=== PATIENT | female | born 1940 | race Caucasian/White ===

== ENCOUNTER 2019-07-16 13:13 | Inpatient (IN) ==
[2019-07-16] MEDS ORDERED: SODIUM CHLORIDE 0.9% 1,000 ML IV STA (13:40)
[2019-07-16] MEDS ORDERED: VANCOMYCIN INJ 1,000 MG in SODIUM CHLORIDE 0.9% 250 ML IV STA (14:55)
[2019-07-16 15:13] LABS: Basophils % 0.1 % (0.0-0.8); Hematocrit 30.4 VOL% (35.7-47.0); Hemoglobin 9.2 GM/DL (12.0-16.0); Immature Granulocytes % 0.9 %; Immature Granulocytes Absolute 0.19 #; Lymphocytes # 0.9 10*3/uL (1.4-4.0); Lymphocytes % 4.3 % (21.3-54.2); Mean Corpuscular HGB Conc 30.3 GM/DL (32-36); Mean Corpuscular Volume 97.7 FL (87-102); Mean Platelet Volume 10.2 FL (9.6-12.0); Monocytes % 3.5 % (1.7-12.7); Neutrophils % 91.2 % (38.7-73.9); Platelet Count 323 T/CUMM (130-400); Red Blood Count 3.11 MC/CUMM (3.8-5.5); Red Cell Distribution Width 14.8 % (9.3-17.3); White Blood Count 21.3 T/CUMM (4-12)
[2019-07-16 15:27] LABS: Apearance,Urine Slightly Hazy (Clear); Bacteria,Urine Moderate /HPF (Few); Bilirubin,Urine Negative (Negative); Blood, Urine Small mg/dL (Negative); Glucose,Urine (UA) Negative (Negative); Hyaline Casts,Urine 1 /LPF (0-3); Ketones,Urine 5 mg/dL (Negative); Nitrite,Urine Negative (Negative); Protein,Urine Negative; Squamous Epithelial Cell,Urine Occasional /HPF (0-10); Urine Color Yellow (Yellow); Urine Specific Gravity 1.013 (1.001-1.035); Urine Urobilinogen < 2.0 EU/DL (0.2-1.0); WBC,Urine 14 /HPF (0-6)
[2019-07-16 15:28] LABS: PT Patient Result 10.8 SECS (9.6-12.2); Partial Thromboplastin Time 28.7 SECS (20.8-36.0)
[2019-07-16 15:37] LABS: Barbiturates Screen,Urine Negative (Negative); Benzodiazepines Screen,Urine Negative (Negative); Cannabinoid Screen,Urine Negative (Negative); Opiate Screen,Urine Negative (Negative); Phencyclidine Screen,Urine Negative (Negative)
[2019-07-16 15:38] LABS: Alanine Aminotransferase 11 U/L (13-56); Albumin 2.2 G/DL (3.4-5.0); Alkaline Phosphatase 64 U/L (45-117); Amylase 32 U/L (25-115); Aspartate Amino Transferase 18 U/L (0-37); Bilirubin,Total < 0.39 MG/DL (0.2-1.0); Blood Urea Nitrogen 61 MG/DL (7-18); CKMB % 2.8 %; Calcium 8.7 MG/DL (8.5-10.1); Free T4 (Free Thyroxine) 0.89 NG/DL (0.76-1.46); Glucose 243 MG/DL (74-106); Thyroid Stimulating Hormone 0.654 uIU/ml (0.358-3.74); Total Protein 6.4 G/DL (6.4-8.3)
[2019-07-16 15:39] LABS: Troponin I 0.545 NG/ML (0.00-0.045)
[2019-07-16 15:47] LABS: Hypochromasia Slight; Lymphocytes 5 % (20-55); Microcytosis Slight; Ovalocytes Slight; Platelet Estimate Normal; Segmented Neutrophils 92 % (50-85); Total Cells Counted 100
[2019-07-16] MEDS ORDERED: GLUCAGON 1 MG VIAL IM PRN (16:36)
[2019-07-16] MEDS ORDERED: DEXTROSE 50% 25 GM/50 ML VIAL IV PRN ×2 (16:36)
[2019-07-16] MEDS ORDERED: POLYETHYLENE GLYCOL POWDER 17 GM PACK PO PRN (16:41)
[2019-07-16] MEDS ORDERED: FLUTICASONE 50 MCG NASAL SPRAY 16 GM BOTTLE BOTH NARES PRN (16:41)
[2019-07-16] MEDS ORDERED: SODIUM POLYSTYRENE SULFATE 15 GM/60 ML BOTTLE PO STA (16:45)
[2019-07-16] MEDS ORDERED: ROPINIROLE 0.5 MG PO SCH (17:00)
[2019-07-16] MEDS ORDERED: MEMANTINE 10 MG TABLET PO SCH (17:00)
[2019-07-16] MEDS ORDERED: LEVOFLOXACIN INJ 500 MG in PREMIX 1 EACH IV SCH (17:00)
[2019-07-16] MEDS ORDERED: GABAPENTIN 100 MG CAPSULE PO SCH (17:00)
[2019-07-16] MEDS ORDERED: SODIUM POLYSTYRENE SULFATE 15 GM/60 ML BOTTLE RECTAL STA (17:18)
[2019-07-16] MEDS: MONTELUKAST 10 MG TABLET PO SCH (19:10)
[2019-07-16] MEDS: APIXABAN 5 MG TABLET PO SCH (19:10)
[2019-07-16] MEDS: ACETAMINOPHEN 325 MG TABLET PO SCH (19:10)
[2019-07-16] MEDS: SIMVASTATIN 20 MG TABLET PO SCH (19:10)
[2019-07-16] MEDS: FLUoxetine 20 MG CAPSULE PO SCH (19:10)
[2019-07-16] MEDS: SODIUM CHLORIDE 0.9% 1,000 ML IV SCH (19:11)
[2019-07-16] MEDS: DONEPEZIL 5 MG TABLET PO SCH (19:11)
[2019-07-16] MEDS ORDERED: VANCOMYCIN INJ 1,000 MG in SODIUM CHLORIDE 0.9% 250 ML IV PRN (20:24)
[2019-07-16] MEDS: INSULIN REGULAR 100 UNIT/ML SUBCUT SCH (22:42)
[2019-07-17] MEDS: ACETAMINOPHEN 325 MG TABLET PO PRN (03:02)
[2019-07-17 05:04] LABS: Basophils % 0.2 % (0.0-0.8); Eosinophils % 0.2 % (0.00-10.9); Hematocrit 28.7 VOL% (35.7-47.0); Hemoglobin 8.6 GM/DL (12.0-16.0); Immature Granulocytes % 0.7 %; Immature Granulocytes Absolute 0.09 #; Lymphocytes # 1.6 10*3/uL (1.4-4.0); Lymphocytes % 12.5 % (21.3-54.2); Mean Platelet Volume 10.4 FL (9.6-12.0); Monocytes % 9.1 % (1.7-12.7); Neutrophils % 77.3 % (38.7-73.9); Platelet Count 268 T/CUMM (130-400); White Blood Count 12.6 T/CUMM (4-12)
[2019-07-17 05:41] LABS: Alanine Aminotransferase 9 U/L (13-56); Albumin 1.9 G/DL (3.4-5.0); Alkaline Phosphatase 56 U/L (45-117); Aspartate Amino Transferase 19 U/L (0-37); Bilirubin,Total < 0.39 MG/DL (0.2-1.0); Blood Urea Nitrogen 55 MG/DL (7-18); Calcium 8.1 MG/DL (8.5-10.1); HDL Cholesterol 36 MG/DL (40-60); Osmolality,Calculated 303.4 MOS/KG (273-304); Risk Ratio 2.97; Thyroid Stimulating Hormone 0.642 uIU/ml (0.358-3.74); Total Protein 5.5 G/DL (6.4-8.3); Triglycerides 94 MG/DL (2-150); VLDL CHOLESTEROL 18.8 MG/DL
[2019-07-17 05:54] LABS: Glucose 39 MG/DL (74-106)
[2019-07-17] MEDS ORDERED: DEXTROSE 10% 250 ML BAG IV PRN (05:58)
[2019-07-17] MEDS: CYANOCOBALAMIN 500 MCG TABLET PO SCH (06:22)
[2019-07-17] MEDS: LORATADINE 10 MG TABLET PO SCH (06:23)
[2019-07-17] MEDS: ACETAMINOPHEN 325 MG TABLET PO SCH ×2 (06:23→18:50)
[2019-07-17] MEDS: MULTIVITAMIN (CENTRUM) TABLET PO SCH (06:23)
[2019-07-17] MEDS: FLUoxetine 20 MG CAPSULE PO SCH ×2 (06:23→16:54)
[2019-07-17] MEDS: APIXABAN 5 MG TABLET PO SCH ×2 (06:23→16:55)
[2019-07-17] MEDS: SODIUM CHLORIDE 0.9% 1,000 ML IV SCH ×2 (06:27→16:30)
[2019-07-17] MEDS ORDERED: DOCUSATE SODIUM 100 MG CAPSULE PO SCH (07:00)
[2019-07-17] MEDS ORDERED: PANTOPRAZOLE 40 MG TABLET PO SCH (07:00)
[2019-07-17] MEDS: INSULIN REGULAR 100 UNIT/ML SUBCUT SCH ×3 (07:27→16:44)
[2019-07-17] MEDS: MEMANTINE 10 MG TABLET PO SCH (08:10)
[2019-07-17] MEDS: ASPIRIN EC 81 MG TABLET PO SCH (08:10)
[2019-07-17] MEDS: DONEPEZIL 5 MG TABLET PO SCH (16:54)
[2019-07-17] MEDS: MONTELUKAST 10 MG TABLET PO SCH (16:54)
[2019-07-17] MEDS: SIMVASTATIN 20 MG TABLET PO SCH (16:55)
[2019-07-17] MEDS: LEVOFLOXACIN INJ 250 MG in PREMIX 1 EACH IV SCH (18:50)
[2019-07-18] MEDS: INSULIN REGULAR 100 UNIT/ML SUBCUT SCH ×6 (00:45→21:07)
[2019-07-18] MEDS: SODIUM CHLORIDE 0.9% 1,000 ML IV SCH ×3 (01:55→23:16)
[2019-07-18 02:52] LABS: Basophils % 0.2 % (0.0-0.8); Eosinophils % 0.5 % (0.00-10.9); Hematocrit 26.7 VOL% (35.7-47.0); Hemoglobin 8.1 GM/DL (12.0-16.0); Immature Granulocytes % 0.5 %; Immature Granulocytes Absolute 0.04 #; Lymphocytes # 1.4 10*3/uL (1.4-4.0); Lymphocytes % 16.1 % (21.3-54.2); Mean Corpuscular HGB Conc 30.3 GM/DL (32-36); Mean Corpuscular Volume 97.8 FL (87-102); Mean Platelet Volume 9.9 FL (9.6-12.0); Monocytes % 7.8 % (1.7-12.7); Neutrophils % 74.9 % (38.7-73.9); Platelet Count 257 T/CUMM (130-400); Red Blood Count 2.73 MC/CUMM (3.8-5.5); Red Cell Distribution Width 15.2 % (9.3-17.3); White Blood Count 8.5 T/CUMM (4-12)
[2019-07-18 03:15] LABS: Albumin 1.7 G/DL (3.4-5.0); Bilirubin,Total 0.4 MG/DL (0.2-1.0); Calcium 8.3 MG/DL (8.5-10.1); Osmolality,Calculated 299.4 MOS/KG (273-304)
[2019-07-18] MEDS: MULTIVITAMIN (CENTRUM) TABLET PO SCH (06:10)
[2019-07-18] MEDS: LORATADINE 10 MG TABLET PO SCH (06:10)
[2019-07-18] MEDS: CYANOCOBALAMIN 500 MCG TABLET PO SCH (06:11)
[2019-07-18] MEDS: APIXABAN 5 MG TABLET PO SCH ×2 (06:11→16:11)
[2019-07-18] MEDS: FLUoxetine 20 MG CAPSULE PO SCH ×2 (06:12→16:09)
[2019-07-18] MEDS ORDERED: MAGNESIUM SULF RIDER 4 GM in PREMIX 1 EACH IV PRN (06:39)
[2019-07-18] MEDS: ASPIRIN EC 81 MG TABLET PO SCH (08:27)
[2019-07-18] MEDS: ACETAMINOPHEN 325 MG TABLET PO SCH ×2 (08:28→21:00)
[2019-07-18] MEDS ORDERED: VANCOMYCIN INJ 750 MG in SODIUM CHLORIDE 0.9% 250 ML IV SCH (11:00)
[2019-07-18] MEDS: VANCOMYCIN INJ 1,000 MG in SODIUM CHLORIDE 0.9% 250 ML IV SCH (11:32)
[2019-07-18] MEDS ORDERED: SODIUM CHLORIDE 0.9% 1,000 ML IV PRN (12:53)
[2019-07-18] MEDS: MONTELUKAST 10 MG TABLET PO SCH (16:09)
[2019-07-18] MEDS: SIMVASTATIN 20 MG TABLET PO SCH (16:10)
[2019-07-18] MEDS: DONEPEZIL 5 MG TABLET PO SCH (16:10)
[2019-07-18] MEDS: ACETAMINOPHEN 325 MG TABLET PO PRN (16:10)
[2019-07-18 16:40] LABS: Hematocrit 27.8 VOL% (35.7-47.0); Hemoglobin 8.3 GM/DL (12.0-16.0)
[2019-07-18] MEDS: MEMANTINE 5 MG TABLET PO SCH (17:37)
[2019-07-18] MEDS: LEVOFLOXACIN INJ 250 MG in PREMIX 1 EACH IV SCH (17:37)
[2019-07-18] MEDS: MAGNESIUM SULF RIDER 2 GM in PREMIX 1 EACH IV PRN (18:40)
[2019-07-19] MEDS: VANCOMYCIN INJ 1,000 MG in SODIUM CHLORIDE 0.9% 250 ML IV SCH ×3 (00:54→23:06)
[2019-07-19 05:41] LABS: Basophils % 0.3 % (0.0-0.8); Eosinophils % 0.3 % (0.00-10.9); Hematocrit 31.4 VOL% (35.7-47.0); Hemoglobin 9.7 GM/DL (12.0-16.0); Immature Granulocytes % 0.9 %; Immature Granulocytes Absolute 0.07 #; Lymphocytes # 0.8 10*3/uL (1.4-4.0); Lymphocytes % 10.7 % (21.3-54.2); Mean Corpuscular HGB Conc 30.9 GM/DL (32-36); Mean Platelet Volume 10.1 FL (9.6-12.0); Monocytes % 6.1 % (1.7-12.7); Neutrophils % 81.7 % (38.7-73.9); Platelet Count 269 T/CUMM (130-400); Red Blood Count 3.27 MC/CUMM (3.8-5.5); Red Cell Distribution Width 14.8 % (9.3-17.3); White Blood Count 7.7 T/CUMM (4-12)
[2019-07-19] MEDS: LORATADINE 10 MG TABLET PO SCH (06:18)
[2019-07-19] MEDS: CYANOCOBALAMIN 500 MCG TABLET PO SCH (06:18)
[2019-07-19] MEDS: APIXABAN 5 MG TABLET PO SCH ×2 (06:18→18:27)
[2019-07-19] MEDS: FLUoxetine 20 MG CAPSULE PO SCH ×2 (06:18→18:33)
[2019-07-19] MEDS: MULTIVITAMIN (CENTRUM) TABLET PO SCH (06:19)
[2019-07-19 06:22] LABS: Albumin 1.9 G/DL (3.4-5.0); Bilirubin,Total 0.4 MG/DL (0.2-1.0); Calcium 8.4 MG/DL (8.5-10.1); Osmolality,Calculated 294.6 MOS/KG (273-304); Total Protein 5.5 G/DL (6.4-8.3)
[2019-07-19] MEDS: ACETAMINOPHEN 325 MG TABLET PO SCH ×2 (09:49→20:54)
[2019-07-19] MEDS: ASPIRIN EC 81 MG TABLET PO SCH (09:50)
[2019-07-19] MEDS: INSULIN REGULAR 100 UNIT/ML SUBCUT SCH ×4 (09:50→21:28)
[2019-07-19] MEDS: SODIUM CHLORIDE 0.9% 1,000 ML IV SCH ×2 (09:51→18:23)
[2019-07-19] MEDS: MEMANTINE 10 MG TABLET PO SCH ×2 (09:52→10:05)
[2019-07-19] MEDS: ACETAMINOPHEN 325 MG TABLET PO PRN (12:26)
[2019-07-19] MEDS ORDERED: TUBERCULIN SKIN TEST 0.1 ML SYRINGE INTRADERM ONE (13:00)
[2019-07-19] MEDS ORDERED: LORazepam 2 MG/1 ML VIAL IV PRN (16:01)
[2019-07-19] MEDS ORDERED: diphenhydrAMINE 50 MG/1 ML VIAL IV ONE (16:02)
[2019-07-19] MEDS: MONTELUKAST 10 MG TABLET PO SCH (18:27)
[2019-07-19] MEDS: MEMANTINE 5 MG TABLET PO SCH (18:28)
[2019-07-19] MEDS: LEVOFLOXACIN INJ 250 MG in PREMIX 1 EACH IV SCH (18:28)
[2019-07-19] MEDS: DONEPEZIL 5 MG TABLET PO SCH (18:28)
[2019-07-19] MEDS: SIMVASTATIN 20 MG TABLET PO SCH (18:28)
[2019-07-20 04:51] LABS: Basophils % 0.1 % (0.0-0.8); Eosinophils % 0.1 % (0.00-10.9); Hematocrit 29.6 VOL% (35.7-47.0); Hemoglobin 9.1 GM/DL (12.0-16.0); Immature Granulocytes % 0.8 %; Immature Granulocytes Absolute 0.06 #; Lymphocytes # 1.1 10*3/uL (1.4-4.0); Lymphocytes % 13.8 % (21.3-54.2); Mean Corpuscular HGB Conc 30.7 GM/DL (32-36); Mean Corpuscular Volume 94.3 FL (87-102); Monocytes % 6.7 % (1.7-12.7); Neutrophils % 78.5 % (38.7-73.9); Platelet Count 262 T/CUMM (130-400); Red Blood Count 3.14 MC/CUMM (3.8-5.5); Red Cell Distribution Width 14.8 % (9.3-17.3); White Blood Count 7.8 T/CUMM (4-12)
[2019-07-20 05:17] LABS: Alanine Aminotransferase 9 U/L (13-56); Albumin 1.8 G/DL (3.4-5.0); Alkaline Phosphatase 52 U/L (45-117); Aspartate Amino Transferase 14 U/L (0-37); Bilirubin,Total < 0.39 MG/DL (0.2-1.0); Blood Urea Nitrogen 10 MG/DL (7-18); Calcium 8.4 MG/DL (8.5-10.1); Glucose 127 MG/DL (74-106); Osmolality,Calculated 288.7 MOS/KG (273-304); Total Protein 5.2 G/DL (6.4-8.3)
[2019-07-20 05:20] LABS: Calcium 8.1 MG/DL (8.5-10.1); Osmolality,Calculated 291.4 MOS/KG (273-304)
[2019-07-20] MEDS: MAGNESIUM SULF RIDER 2 GM in PREMIX 1 EACH IV PRN (05:29)
[2019-07-20] MEDS ORDERED: POTASSIUM CHLORIDE RIDER 10 MEQ in PREMIX 1 EACH IV PRN (06:58)
[2019-07-20] MEDS ORDERED: BUPIVACAINE 0.5% 50 ML VIAL ONE (08:19)
[2019-07-20] MEDS ORDERED: SODIUM CHLORIDE 0.9% 100 ML IV ONE (08:47)
[2019-07-20] MEDS ORDERED: MIDAZOLAM 2 MG/2 ML VIAL ONE (08:47)
[2019-07-20] MEDS ORDERED: PROPOFOL 200 MG/20 ML VIAL IV ONE (08:47)
[2019-07-20] MEDS: INSULIN REGULAR 100 UNIT/ML SUBCUT SCH ×2 (10:37→11:38)
[2019-07-20] MEDS: CYANOCOBALAMIN 500 MCG TABLET PO SCH (11:36)
[2019-07-20] MEDS: LORATADINE 10 MG TABLET PO SCH (11:36)
[2019-07-20] MEDS: FLUoxetine 20 MG CAPSULE PO SCH (11:36)
[2019-07-20] MEDS: MULTIVITAMIN (CENTRUM) TABLET PO SCH (11:36)
[2019-07-20] MEDS: ASPIRIN EC 81 MG TABLET PO SCH (11:37)
[2019-07-20] MEDS: MEMANTINE 10 MG TABLET PO SCH (11:37)
[2019-07-20] MEDS: APIXABAN 5 MG TABLET PO SCH (11:37)
[2019-07-20] MEDS: VANCOMYCIN INJ 1,000 MG in SODIUM CHLORIDE 0.9% 250 ML IV SCH (11:37)
[2019-07-20] MEDS: ACETAMINOPHEN 325 MG TABLET PO SCH (11:41)
[2019-07-20 15:35] VITALS: BP 127/72
== END 2019-07-20 15:40 | DRG 853 ==
LOC: EDBD → EDUNIT# → N.ED 13:13 → N.EDINP 16:38 → N.2E 17:23
PROVIDERS: ADMIT Internal Medicine; ATTEND Internal Medicine